=== PATIENT | female | born 1955 | race Caucasian/White ===

== ENCOUNTER 2020-09-09 11:59 | Inpatient (IN) ==
[2020-09-09] MEDS ORDERED: Magic Mouthwash 10 ML UD Cup PO PRN (18:29)
[2020-09-09] MEDS: *HR* OxyCODONE/APAP 5/325 TABLET PO PRN (21:39)
[2020-09-10 06:46] LABS: Basophils # 0.1 K/mcL (0.0-0.2); Basophils % 1.2 %; Eosinophils % 0.2 %; Hematocrit 22.7 % (35.3-44.9); Hemoglobin 7.6 g/dL (11.5-15.4); Immature Granulocytes % 13.1 % (0-4); Lymphocytes # 1.3 K/mcL (0.6-4.6); Lymphocytes % 25.7 %; Mean Corpuscular HGB Conc 33.5 g/dL (31.6-35.5); Mean Corpuscular Hemoglobin 30.8 pg (28.0-33.3); Mean Corpuscular Volume 91.9 fL (83.0-100.0); Mean Platelet Volume 10.8 fL (9.4-12.4); Monocytes # 0.4 K/mcL (0.0-1.3); Monocytes % 8.3 %; Neutrophils # 2.6 K/mcL (1.6-8.9); Nucleated Red Blood Cells 0.8 /100 WBC (0); Red Blood Count 2.47 M/mcL (3.82-4.97); Red Cell Distribution Width 17.3 % (11.5-14.5); Segmented Neutrophils % 51.5 %; White Blood Count 5.1 K/mcL (4.3-11.1)
[2020-09-10 06:57] LABS: Platelet Count 25 K/mcL (140-400)
[2020-09-10 07:02] LABS: BUN/Creatinine Ratio 33 (6-26); Blood Urea Nitrogen 20 mg/dL (8-23); Calcium 7.7 mg/dL (8.6-10.3); Carbon Dioxide 28 mEq/L (23-29); Chloride 107 mEq/L (98-107); Glucose 76 mg/dL (70-105); Osmolality,Calculated 299 (280-300); Potassium 3.1 mEq/L (3.5-5.1); Sodium 144 mEq/L (136-145); eGFR For African Americans > 60 (> 60); eGFR For Non-African Americans > 60 (> 60)
[2020-09-10 07:49] LABS: Platelet Estimate Marked Decrease (Normal)
[2020-09-10] MEDS ORDERED: GI Cocktail 40 ML EACH PO PRN (07:52)
[2020-09-10] MEDS: Potassium Chloride Elixir 20 MEQ/15 ML UDC PO SCH ×2 (08:42→17:27)
[2020-09-11 06:47] LABS: Basophils # 0.1 K/mcL (0.0-0.2); Hematocrit 24.4 % (35.3-44.9); Hemoglobin 8.2 g/dL (11.5-15.4); Mean Corpuscular HGB Conc 33.6 g/dL (31.6-35.5); Mean Corpuscular Hemoglobin 31.5 pg (28.0-33.3); Mean Corpuscular Volume 93.8 fL (83.0-100.0); Mean Platelet Volume 11.3 fL (9.4-12.4); Nucleated Red Blood Cells 0.8 /100 WBC (0); Red Cell Distribution Width 17.8 % (11.5-14.5); White Blood Count 5.2 K/mcL (4.3-11.1)
[2020-09-11 07:05] LABS: BUN/Creatinine Ratio 31 (6-26); Blood Urea Nitrogen 22 mg/dL (8-23); Calcium 7.5 mg/dL (8.6-10.3); Carbon Dioxide 29 mEq/L (23-29); Chloride 108 mEq/L (98-107); Glucose 94 mg/dL (70-105); Osmolality,Calculated 305 (280-300); Phosphorous 2.2 mg/dL (2.7-4.5); Sodium 146 mEq/L (136-145); eGFR For African Americans > 60 (> 60); eGFR For Non-African Americans > 60 (> 60)
[2020-09-11 07:15] LABS: Platelet Count 39 K/mcL (140-400)
[2020-09-11 08:38] LABS: Anisocytosis 1+ (Not Present); Lymphocytes # 1.3 K/mcL (0.6-4.6); Monocytes # 0.2 K/mcL (0.0-1.3); Neutrophils # 3.1 K/mcL (1.6-8.9)
[2020-09-11 08:39] LABS: Platelet Estimate Marked Decrease (Normal); Polychromasia 1+ (Not Present)
[2020-09-11] MEDS: Potassium Chloride Elixir 20 MEQ/15 ML UDC PO SCH ×2 (09:01→17:39)
[2020-09-11] MEDS: D5% in 0.45% NACL w KCl 20 MEQ/1,000 ML MLS IVC SCH (15:26)
[2020-09-12] MEDS: D5% in 0.45% NACL w KCl 20 MEQ/1,000 ML MLS IVC SCH (00:12)
[2020-09-12] MEDS: Potassium Chloride Elixir 20 MEQ/15 ML UDC PO SCH ×2 (09:43→17:18)
[2020-09-12] MEDS: *HR* OxyCODONE/APAP 5/325 TABLET PO PRN (11:24)
[2020-09-12 15:04] LABS: BUN/Creatinine Ratio 32 (6-26); Blood Urea Nitrogen 21 mg/dL (8-23); Calcium 7.4 mg/dL (8.6-10.3); Carbon Dioxide 27 mEq/L (23-29); Chloride 106 mEq/L (98-107); Glucose 106 mg/dL (70-105); Magnesium 1.4 mg/dL (1.6-2.6); Osmolality,Calculated 295 (280-300); Phosphorous 1.4 mg/dL (2.7-4.5); Potassium 3.5 mEq/L (3.5-5.1); Sodium 141 mEq/L (136-145); eGFR For African Americans > 60 (> 60); eGFR For Non-African Americans > 60 (> 60)
[2020-09-12] MEDS ORDERED: Magnesium Sulfate 1 GM/102 ML PIGGYBACK IVPB ONE (17:03)
[2020-09-12] MEDS: Nystatin SUSP 5 ML UD.LIQ PO SCH ×2 (17:16→20:31)
[2020-09-13 07:20] LABS: BUN/Creatinine Ratio 33 (6-26); Blood Urea Nitrogen 19 mg/dL (8-23); Calcium 7.3 mg/dL (8.6-10.3); Carbon Dioxide 26 mEq/L (23-29); Chloride 107 mEq/L (98-107); Glucose 85 mg/dL (70-105); Osmolality,Calculated 292 (280-300); Potassium 3.6 mEq/L (3.5-5.1); Sodium 140 mEq/L (136-145); eGFR For African Americans > 60 (> 60); eGFR For Non-African Americans > 60 (> 60)
[2020-09-13 07:44] LABS: Basophils # 0.1 K/mcL (0.0-0.2); Hematocrit 22.3 % (35.3-44.9); Hemoglobin 7.4 g/dL (11.5-15.4); Mean Corpuscular HGB Conc 33.2 g/dL (31.6-35.5); Mean Corpuscular Hemoglobin 31.2 pg (28.0-33.3); Mean Corpuscular Volume 94.1 fL (83.0-100.0); Mean Platelet Volume 11.5 fL (9.4-12.4); Nucleated Red Blood Cells 0.7 /100 WBC (0); Platelet Count 56 K/mcL (140-400); Red Blood Count 2.37 M/mcL (3.82-4.97); Red Cell Distribution Width 18.2 % (11.5-14.5)
[2020-09-13] MEDS: Potassium Chloride Elixir 20 MEQ/15 ML UDC PO SCH ×2 (08:27→16:43)
[2020-09-13] MEDS: Magnesium Oxide 400 MG TABLET PO SCH ×2 (08:28→21:47)
[2020-09-13] MEDS: Nystatin SUSP 5 ML UD.LIQ PO SCH ×4 (08:44→21:47)
[2020-09-13 08:49] LABS: Lymphocytes # 2.1 K/mcL (0.6-4.6); Monocytes # 0.6 K/mcL (0.0-1.3); Neutrophils # 4.2 K/mcL (1.6-8.9)
[2020-09-13 08:50] LABS: Anisocytosis 2+ (Not Present); Hypochromasia Present (Not Present); Platelet Estimate Decreased (Normal); Polychromasia 1+ (Not Present); Toxic Granulation Present (Not Present)
[2020-09-14 07:45] LABS: BUN/Creatinine Ratio 33 (6-26); Blood Urea Nitrogen 18 mg/dL (8-23); Calcium 7.5 mg/dL (8.6-10.3); Carbon Dioxide 27 mEq/L (23-29); Chloride 108 mEq/L (98-107); Glucose 81 mg/dL (70-105); Magnesium 1.5 mg/dL (1.6-2.6); Osmolality,Calculated 291 (280-300); Phosphorous 1.9 mg/dL (2.7-4.5); Potassium 4.1 mEq/L (3.5-5.1); Sodium 140 mEq/L (136-145); eGFR For African Americans > 60 (> 60); eGFR For Non-African Americans > 60 (> 60)
[2020-09-14] MEDS: Potassium Chloride Elixir 20 MEQ/15 ML UDC PO SCH ×2 (08:06→18:13)
[2020-09-14] MEDS: Magnesium Oxide 400 MG TABLET PO SCH ×2 (08:10→20:38)
[2020-09-14] MEDS: Nystatin SUSP 5 ML UD.LIQ PO SCH ×4 (08:10→20:38)
[2020-09-14] MEDS: *HR* OxyCODONE/APAP 5/325 TABLET PO PRN (20:38)
[2020-09-15 07:20] LABS: BUN/Creatinine Ratio 27 (6-26); Blood Urea Nitrogen 16 mg/dL (8-23); Calcium 7.7 mg/dL (8.6-10.3); Carbon Dioxide 28 mEq/L (23-29); Chloride 106 mEq/L (98-107); Glucose 81 mg/dL (70-105); Magnesium 1.7 mg/dL (1.6-2.6); Osmolality,Calculated 290 (280-300); Phosphorous 2.6 mg/dL (2.7-4.5); Potassium 4.7 mEq/L (3.5-5.1); Sodium 140 mEq/L (136-145); eGFR For African Americans > 60 (> 60); eGFR For Non-African Americans > 60 (> 60)
[2020-09-15 07:27] LABS: Hematocrit 24.1 % (35.3-44.9); Hemoglobin 7.8 g/dL (11.5-15.4); Mean Corpuscular HGB Conc 32.4 g/dL (31.6-35.5); Mean Corpuscular Hemoglobin 30.7 pg (28.0-33.3); Mean Corpuscular Volume 94.9 fL (83.0-100.0); Mean Platelet Volume 10.5 fL (9.4-12.4); Nucleated Red Blood Cells 0.6 /100 WBC (0); Platelet Count 101 K/mcL (140-400); Red Blood Count 2.54 M/mcL (3.82-4.97); Red Cell Distribution Width 18.3 % (11.5-14.5); White Blood Count 8.7 K/mcL (4.3-11.1)
[2020-09-15 09:02] LABS: Lymphocytes # 1.4 K/mcL (0.6-4.6); Monocytes # 0.4 K/mcL (0.0-1.3); Neutrophils # 5.6 K/mcL (1.6-8.9); Platelet Estimate Decreased (Normal)
[2020-09-15 09:03] LABS: Anisocytosis 1+ (Not Present); Hypersegmented Neutrophils Present (Not Present)
[2020-09-15] MEDS: Potassium Chloride Elixir 20 MEQ/15 ML UDC PO SCH ×2 (10:01→18:30)
[2020-09-15] MEDS: Magnesium Oxide 400 MG TABLET PO SCH ×2 (10:02→19:59)
[2020-09-15] MEDS: Nystatin SUSP 5 ML UD.LIQ PO SCH ×4 (10:03→20:00)
[2020-09-15] MEDS: Ondansetron ODT 4 MG TAB.RAPDIS PO PRN (17:08)
[2020-09-16 06:55] LABS: Basophils # 0.1 K/mcL (0.0-0.2); Basophils % 0.9 %; Hematocrit 24.7 % (35.3-44.9); Lymphocytes # 1.5 K/mcL (0.6-4.6); Lymphocytes % 22.4 %; Mean Corpuscular HGB Conc 32.4 g/dL (31.6-35.5); Mean Corpuscular Volume 95.7 fL (83.0-100.0); Mean Platelet Volume 10.7 fL (9.4-12.4); Monocytes # 0.5 K/mcL (0.0-1.3); Neutrophils # 3.8 K/mcL (1.6-8.9); Nucleated Red Blood Cells 0.5 /100 WBC (0); Red Blood Count 2.58 M/mcL (3.82-4.97); Red Cell Distribution Width 18.6 % (11.5-14.5); Segmented Neutrophils % 57.7 %; White Blood Count 6.7 K/mcL (4.3-11.1)
[2020-09-16 06:59] LABS: Platelet Count 95 K/mcL (140-400)
[2020-09-16 07:17] LABS: BUN/Creatinine Ratio 21 (6-26); Blood Urea Nitrogen 15 mg/dL (8-23); Calcium 7.5 mg/dL (8.6-10.3); Carbon Dioxide 30 mEq/L (23-29); Chloride 106 mEq/L (98-107); Glucose 78 mg/dL (70-105); Magnesium 1.5 mg/dL (1.6-2.6); Osmolality,Calculated 292 (280-300); Phosphorous 3.1 mg/dL (2.7-4.5); Potassium 4.8 mEq/L (3.5-5.1); Sodium 141 mEq/L (136-145); eGFR For African Americans > 60 (> 60); eGFR For Non-African Americans > 60 (> 60)
[2020-09-16 07:52] LABS: Anisocytosis 2+ (Not Present)
[2020-09-16 07:55] LABS: Basophilic Stippling 1+ (Not Present); Polychromasia 2+ (Not Present)
[2020-09-16 07:56] LABS: Platelet Estimate Decreased (Normal)
[2020-09-16] MEDS: Potassium Chloride Elixir 20 MEQ/15 ML UDC PO SCH ×2 (09:15→17:55)
[2020-09-16] MEDS: Nystatin SUSP 5 ML UD.LIQ PO SCH ×3 (09:16→17:54)
[2020-09-16] MEDS: Magnesium Oxide 400 MG TABLET PO SCH ×2 (09:16→20:05)
[2020-09-17] MEDS: *HR* OxyCODONE/APAP 5/325 TABLET PO PRN (06:43)
[2020-09-17] MEDS: Magnesium Oxide 400 MG TABLET PO SCH ×2 (11:02→20:48)
[2020-09-17] MEDS: Nystatin SUSP 5 ML UD.LIQ PO SCH ×4 (11:02→20:49)
[2020-09-17] MEDS: Potassium Chloride Elixir 20 MEQ/15 ML UDC PO SCH ×2 (11:02→15:36)
[2020-09-18 06:29] LABS: Hematocrit 23.5 % (35.3-44.9); Hemoglobin 7.7 g/dL (11.5-15.4); Mean Corpuscular HGB Conc 32.8 g/dL (31.6-35.5); Mean Corpuscular Volume 94.8 fL (83.0-100.0); Mean Platelet Volume 10.3 fL (9.4-12.4); Platelet Count 117 K/mcL (140-400); Red Blood Count 2.48 M/mcL (3.82-4.97); Red Cell Distribution Width 18.8 % (11.5-14.5); White Blood Count 5.3 K/mcL (4.3-11.1)
[2020-09-18 06:51] LABS: BUN/Creatinine Ratio 21 (6-26); Blood Urea Nitrogen 14 mg/dL (8-23); Calcium 7.4 mg/dL (8.6-10.3); Carbon Dioxide 28 mEq/L (23-29); Chloride 104 mEq/L (98-107); Glucose 80 mg/dL (70-105); Magnesium 1.3 mg/dL (1.6-2.6); Osmolality,Calculated 285 (280-300); Potassium 4.2 mEq/L (3.5-5.1); Sodium 138 mEq/L (136-145); eGFR For African Americans > 60 (> 60); eGFR For Non-African Americans > 60 (> 60)
[2020-09-18] MEDS: Potassium Chloride Elixir 20 MEQ/15 ML UDC PO SCH ×2 (08:43→16:18)
[2020-09-18] MEDS: Nystatin SUSP 5 ML UD.LIQ PO SCH ×4 (08:44→20:55)
[2020-09-18] MEDS: Magnesium Oxide 400 MG TABLET PO SCH ×2 (08:44→20:54)
[2020-09-18] MEDS: *HR* OxyCODONE/APAP 5/325 TABLET PO PRN ×2 (08:49→20:55)
[2020-09-18] MEDS: Megestrol Acetate 400 MG/10 ML UDC PO SCH (11:54)
[2020-09-19] MEDS: Nystatin SUSP 5 ML UD.LIQ PO SCH ×4 (10:26→20:01)
[2020-09-19] MEDS: Potassium Chloride Elixir 20 MEQ/15 ML UDC PO SCH ×2 (10:26→16:04)
[2020-09-19] MEDS: Megestrol Acetate 400 MG/10 ML UDC PO SCH (10:26)
[2020-09-19] MEDS: Magnesium Oxide 400 MG TABLET PO SCH ×2 (10:27→20:00)
[2020-09-20] MEDS: Potassium Chloride Elixir 20 MEQ/15 ML UDC PO SCH ×2 (10:10→16:40)
[2020-09-20] MEDS: Megestrol Acetate 400 MG/10 ML UDC PO SCH (10:10)
[2020-09-20] MEDS: Magnesium Oxide 400 MG TABLET PO SCH ×2 (10:10→20:10)
[2020-09-20] MEDS: Nystatin SUSP 5 ML UD.LIQ PO SCH ×4 (10:11→20:10)
[2020-09-20] MEDS: *HR* OxyCODONE/APAP 5/325 TABLET PO PRN (20:11)
[2020-09-21] MEDS: Potassium Chloride Elixir 20 MEQ/15 ML UDC PO SCH ×2 (08:45→17:02)
[2020-09-21] MEDS: Nystatin SUSP 5 ML UD.LIQ PO SCH ×4 (08:46→20:05)
[2020-09-21] MEDS: Magnesium Oxide 400 MG TABLET PO SCH ×2 (08:46→20:05)
[2020-09-21] MEDS: Megestrol Acetate 400 MG/10 ML UDC PO SCH (08:46)
[2020-09-21] MEDS: Ondansetron ODT 4 MG TAB.RAPDIS PO PRN (08:47)
[2020-09-22 06:07] LABS: Hemoglobin 7.9 g/dL (11.5-15.4); Mean Corpuscular HGB Conc 32.9 g/dL (31.6-35.5); Mean Corpuscular Hemoglobin 31.9 pg (28.0-33.3); Mean Corpuscular Volume 96.8 fL (83.0-100.0); Mean Platelet Volume 10.1 fL (9.4-12.4); Platelet Count 111 K/mcL (140-400); Red Blood Count 2.48 M/mcL (3.82-4.97); Red Cell Distribution Width 19.8 % (11.5-14.5); White Blood Count 4.6 K/mcL (4.3-11.1)
[2020-09-22 06:24] LABS: BUN/Creatinine Ratio 20 (6-26); Blood Urea Nitrogen 13 mg/dL (8-23); Calcium 7.5 mg/dL (8.6-10.3); Carbon Dioxide 29 mEq/L (23-29); Chloride 101 mEq/L (98-107); Glucose 79 mg/dL (70-105); Magnesium 1.4 mg/dL (1.6-2.6); Osmolality,Calculated 273 (280-300); Potassium 4.8 mEq/L (3.5-5.1); Sodium 132 mEq/L (136-145); eGFR For African Americans > 60 (> 60); eGFR For Non-African Americans > 60 (> 60)
[2020-09-22] MEDS: Megestrol Acetate 400 MG/10 ML UDC PO SCH (08:54)
[2020-09-22] MEDS: Magnesium Oxide 400 MG TABLET PO SCH ×2 (08:54→20:44)
[2020-09-22] MEDS: Nystatin SUSP 5 ML UD.LIQ PO SCH ×4 (08:54→20:44)
[2020-09-22] MEDS: Potassium Chloride Elixir 20 MEQ/15 ML UDC PO SCH ×2 (08:54→16:13)
[2020-09-22] MEDS ORDERED: Magnesium Oxide 400 MG TABLET PO ONE (11:30)
[2020-09-23 08:43] LABS: Bilirubin,Urine Negative (Negative); Blood,Urine Small (Negative); Clarity,Urine Slightly Cloudy (Clear); Color,Urine Yellow (Yellow); Glucose,Urine (UA) Normal (Normal); Ketones,Urine 15 mg/dL (Negative); Leukocyte Esterase,Urine Trace (Negative); Nitrite,Urine Negative (Negative); PH,Urine 8.5 pH Units (5.0-8.0); Protein,Urine Trace mg/dL (Neg-Trace); Urobilinogen,Urine Normal (Normal)
[2020-09-23] MEDS: Magnesium Oxide 400 MG TABLET PO SCH ×2 (08:48→20:00)
[2020-09-23] MEDS: Megestrol Acetate 400 MG/10 ML UDC PO SCH (08:48)
[2020-09-23] MEDS: Nystatin SUSP 5 ML UD.LIQ PO SCH ×4 (08:48→20:04)
[2020-09-23] MEDS: Potassium Chloride Elixir 20 MEQ/15 ML UDC PO SCH ×2 (08:48→16:32)
[2020-09-23 09:07] LABS: Bacteria,Urine Many per hpf (None-Few); RBC,Urine 0-3 per hpf (0-3); Squamous Epithelial Cell,Urine Few per hpf (None-Few); WBC,Urine 30-50 per hpf (0-3)
[2020-09-23] MEDS: cephALEXin 500 MG CAPSULE PO SCH ×3 (12:24→20:00)
[2020-09-23] MEDS: Lactobacillus 1 EACH CAP.SPRINK PO SCH (12:24)
[2020-09-24 06:22] LABS: Basophils # 0.1 K/mcL (0.0-0.2); Basophils % 1.5 %; Eosinophils % 0.8 %; Hematocrit 22.7 % (35.3-44.9); Hemoglobin 7.7 g/dL (11.5-15.4); Immature Granulocytes % 1.1 % (0-4); Lymphocytes # 1.4 K/mcL (0.6-4.6); Lymphocytes % 29.5 %; Mean Corpuscular HGB Conc 33.9 g/dL (31.6-35.5); Mean Corpuscular Hemoglobin 32.6 pg (28.0-33.3); Mean Corpuscular Volume 96.2 fL (83.0-100.0); Mean Platelet Volume 9.8 fL (9.4-12.4); Monocytes # 0.5 K/mcL (0.0-1.3); Monocytes % 9.5 %; Neutrophils # 2.7 K/mcL (1.6-8.9); Platelet Count 107 K/mcL (140-400); Red Blood Count 2.36 M/mcL (3.82-4.97); Red Cell Distribution Width 20.1 % (11.5-14.5); Segmented Neutrophils % 57.6 %; White Blood Count 4.8 K/mcL (4.3-11.1)
[2020-09-24 07:09] LABS: BUN/Creatinine Ratio 16 (6-26); Blood Urea Nitrogen 11 mg/dL (8-23); Calcium 7.6 mg/dL (8.6-10.3); Carbon Dioxide 26 mEq/L (23-29); Chloride 101 mEq/L (98-107); Glucose 71 mg/dL (70-105); Magnesium 1.3 mg/dL (1.6-2.6); Osmolality,Calculated 274 (280-300); Phosphorous 3.2 mg/dL (2.7-4.5); Potassium 4.6 mEq/L (3.5-5.1); Sodium 133 mEq/L (136-145); eGFR For African Americans > 60 (> 60); eGFR For Non-African Americans > 60 (> 60)
[2020-09-24] MEDS: Megestrol Acetate 400 MG/10 ML UDC PO SCH (08:13)
[2020-09-24] MEDS: Nystatin SUSP 5 ML UD.LIQ PO SCH ×4 (08:13→19:55)
[2020-09-24] MEDS: Lactobacillus 1 EACH CAP.SPRINK PO SCH (08:13)
[2020-09-24] MEDS: cephALEXin 500 MG CAPSULE PO SCH ×3 (08:13→19:55)
[2020-09-24] MEDS: Potassium Chloride Elixir 20 MEQ/15 ML UDC PO SCH (08:13)
[2020-09-24] MEDS: Magnesium Oxide 400 MG TABLET PO SCH ×2 (08:14→19:54)
[2020-09-24] MEDS ORDERED: 0.9 % Sodium Chloride 250 ML IVC ONE (18:11)
[2020-09-25] MEDS: Lactobacillus 1 EACH CAP.SPRINK PO SCH (10:16)
[2020-09-25] MEDS: Magnesium Oxide 400 MG TABLET PO SCH ×2 (10:16→21:23)
[2020-09-25] MEDS: Nystatin SUSP 5 ML UD.LIQ PO SCH ×4 (10:16→21:23)
[2020-09-25] MEDS: cephALEXin 500 MG CAPSULE PO SCH ×3 (10:16→21:49)
[2020-09-25] MEDS: Megestrol Acetate 400 MG/10 ML UDC PO SCH (10:16)
[2020-09-25] MEDS: Potassium Chloride Elixir 20 MEQ/15 ML UDC PO SCH (11:12)
[2020-09-25 12:08] LABS: Basophils # 0.1 K/mcL (0.0-0.2); Basophils % 1.1 %; Eosinophils % 0.2 %; Hemoglobin 9.9 g/dL (11.5-15.4); Immature Granulocytes % 0.7 % (0-4); Lymphocytes % 20.5 %; Mean Corpuscular HGB Conc 34.1 g/dL (31.6-35.5); Mean Corpuscular Hemoglobin 32.9 pg (28.0-33.3); Mean Corpuscular Volume 96.3 fL (83.0-100.0); Mean Platelet Volume 9.8 fL (9.4-12.4); Monocytes # 0.6 K/mcL (0.0-1.3); Monocytes % 5.8 %; Neutrophils # 6.8 K/mcL (1.6-8.9); Platelet Count 187 K/mcL (140-400); Red Blood Count 3.01 M/mcL (3.82-4.97); Red Cell Distribution Width 20.2 % (11.5-14.5); Segmented Neutrophils % 71.7 %; White Blood Count 9.5 K/mcL (4.3-11.1)
[2020-09-25] MEDS: 0.9 % Sodium Chloride 1,000 ML IVC SCH ×2 (14:00→23:00)
[2020-09-26] MEDS: 0.9 % Sodium Chloride 1,000 ML IVC SCH ×2 (08:52→17:18)
[2020-09-26 09:53] LABS: Basophils # 0.1 K/mcL (0.0-0.2); Basophils % 1.5 %; Eosinophils % 0.9 %; Hematocrit 23.1 % (35.3-44.9); Hemoglobin 7.8 g/dL (11.5-15.4); Immature Granulocytes % 0.7 % (0-4); Lymphocytes # 0.9 K/mcL (0.6-4.6); Lymphocytes % 19.4 %; Mean Corpuscular HGB Conc 33.8 g/dL (31.6-35.5); Mean Corpuscular Hemoglobin 33.2 pg (28.0-33.3); Mean Corpuscular Volume 98.3 fL (83.0-100.0); Mean Platelet Volume 10.1 fL (9.4-12.4); Monocytes # 0.4 K/mcL (0.0-1.3); Monocytes % 8.4 %; Neutrophils # 3.1 K/mcL (1.6-8.9); Platelet Count 92 K/mcL (140-400); Red Blood Count 2.35 M/mcL (3.82-4.97); Segmented Neutrophils % 69.1 %; White Blood Count 4.5 K/mcL (4.3-11.1)
[2020-09-26] MEDS: Lactobacillus 1 EACH CAP.SPRINK PO SCH (10:29)
[2020-09-26] MEDS: Potassium Chloride Elixir 20 MEQ/15 ML UDC PO SCH (10:29)
[2020-09-26] MEDS: Megestrol Acetate 400 MG/10 ML UDC PO SCH (10:29)
[2020-09-26] MEDS: Nystatin SUSP 5 ML UD.LIQ PO SCH ×4 (10:29→20:19)
[2020-09-26] MEDS: cephALEXin 500 MG CAPSULE PO SCH ×3 (10:29→20:19)
[2020-09-26] MEDS: Magnesium Oxide 400 MG TABLET PO SCH ×2 (10:29→20:18)
[2020-09-26] MEDS ORDERED: 0.9 % Sodium Chloride 250 ML ONE (20:16)
[2020-09-27] MEDS: 0.9 % Sodium Chloride 1,000 ML IVC SCH ×2 (04:46→22:32)
[2020-09-27] MEDS: *HR* OxyCODONE/APAP 5/325 TABLET PO PRN (04:52)
[2020-09-27 07:54] LABS: Basophils # 0.1 K/mcL (0.0-0.2); Eosinophils # 0.1 K/mcL (0.0-0.6); Eosinophils % 1.3 %; Immature Granulocytes % 0.8 % (0-4); Lymphocytes # 1.1 K/mcL (0.6-4.6); Lymphocytes % 17.8 %; Mean Corpuscular HGB Conc 34.1 g/dL (31.6-35.5); Mean Corpuscular Hemoglobin 32.8 pg (28.0-33.3); Mean Platelet Volume 10.1 fL (9.4-12.4); Monocytes # 0.4 K/mcL (0.0-1.3); Monocytes % 6.9 %; Neutrophils # 4.4 K/mcL (1.6-8.9); Red Blood Count 3.02 M/mcL (3.82-4.97); Red Cell Distribution Width 18.6 % (11.5-14.5); Segmented Neutrophils % 72.2 %; White Blood Count 6.1 K/mcL (4.3-11.1)
[2020-09-27 08:08] LABS: Hemoglobin 9.9 g/dL (11.5-15.4); Platelet Count 99 K/mcL (140-400)
[2020-09-27 08:23] LABS: BUN/Creatinine Ratio 16 (6-26); Blood Urea Nitrogen 9 mg/dL (8-23); Calcium 7.4 mg/dL (8.6-10.3); Carbon Dioxide 20 mEq/L (23-29); Chloride 106 mEq/L (98-107); Glucose 66 mg/dL (70-105); Magnesium 1.4 mg/dL (1.6-2.6); Osmolality,Calculated 275 (280-300); Phosphorous 2.7 mg/dL (2.7-4.5); Potassium 3.9 mEq/L (3.5-5.1); Sodium 134 mEq/L (136-145); eGFR For African Americans > 60 (> 60); eGFR For Non-African Americans > 60 (> 60)
[2020-09-27 08:26] LABS: Rouleaux Present (Not Present)
[2020-09-27] MEDS: Megestrol Acetate 400 MG/10 ML UDC PO SCH (09:22)
[2020-09-27] MEDS: Lactobacillus 1 EACH CAP.SPRINK PO SCH (09:23)
[2020-09-27] MEDS: Magnesium Oxide 400 MG TABLET PO SCH ×2 (09:23→21:59)
[2020-09-27] MEDS: cephALEXin 500 MG CAPSULE PO SCH ×3 (09:23→21:59)
[2020-09-27] MEDS: Potassium Chloride Elixir 20 MEQ/15 ML UDC PO SCH (09:23)
[2020-09-27] MEDS: Nystatin SUSP 5 ML UD.LIQ PO SCH ×4 (09:23→22:32)
[2020-09-28] MEDS: Megestrol Acetate 400 MG/10 ML UDC PO SCH (10:10)
[2020-09-28] MEDS: Lactobacillus 1 EACH CAP.SPRINK PO SCH (10:10)
[2020-09-28] MEDS: Nystatin SUSP 5 ML UD.LIQ PO SCH ×4 (10:10→20:47)
[2020-09-28] MEDS: Potassium Chloride Elixir 20 MEQ/15 ML UDC PO SCH (10:10)
[2020-09-28] MEDS: Magnesium Oxide 400 MG TABLET PO SCH ×2 (10:11→20:29)
[2020-09-29 07:14] VITALS: BP 122/66
[2020-09-29 08:05] LABS: Basophils % 0.7 %; Eosinophils # 0.1 K/mcL (0.0-0.6); Eosinophils % 2.2 %; Hematocrit 30.8 % (35.3-44.9); Hemoglobin 10.6 g/dL (11.5-15.4); Immature Granulocytes % 0.7 % (0-4); Lymphocytes # 1.3 K/mcL (0.6-4.6); Lymphocytes % 21.4 %; Mean Corpuscular HGB Conc 34.4 g/dL (31.6-35.5); Mean Corpuscular Hemoglobin 32.8 pg (28.0-33.3); Mean Corpuscular Volume 95.4 fL (83.0-100.0); Mean Platelet Volume 9.5 fL (9.4-12.4); Monocytes # 0.4 K/mcL (0.0-1.3); Monocytes % 6.8 %; Neutrophils # 4.1 K/mcL (1.6-8.9); Platelet Count 102 K/mcL (140-400); Red Blood Count 3.23 M/mcL (3.82-4.97); Red Cell Distribution Width 18.6 % (11.5-14.5); Segmented Neutrophils % 68.2 %
[2020-09-29 08:26] LABS: BUN/Creatinine Ratio 16 (6-26); Blood Urea Nitrogen 10 mg/dL (8-23); Calcium 7.7 mg/dL (8.6-10.3); Carbon Dioxide 20 mEq/L (23-29); Chloride 103 mEq/L (98-107); Glucose 73 mg/dL (70-105); Magnesium 1.4 mg/dL (1.6-2.6); Osmolality,Calculated 276 (280-300); Potassium 3.6 mEq/L (3.5-5.1); Sodium 134 mEq/L (136-145); eGFR For African Americans > 60 (> 60); eGFR For Non-African Americans > 60 (> 60)
[2020-09-29] MEDS: Potassium Chloride Elixir 20 MEQ/15 ML UDC PO SCH (08:53)
[2020-09-29] MEDS: Megestrol Acetate 400 MG/10 ML UDC PO SCH (08:53)
[2020-09-29] MEDS: Lactobacillus 1 EACH CAP.SPRINK PO SCH (08:54)
[2020-09-29] MEDS: Magnesium Oxide 400 MG TABLET PO SCH (08:54)
[2020-09-29] MEDS ORDERED: levoFLOXacin 500 MG TABLET PO SCH (09:00)
[2020-09-29] MEDS ORDERED: Linezolid 600 MG TABLET PO SCH (09:00)
[2020-09-29] MEDS: Nystatin SUSP 5 ML UD.LIQ PO SCH ×3 (09:04→17:06)
[2020-09-29] MEDS ORDERED: Fosfomycin Tromethamine 3 GM Packet PO ONE (17:00)
== END 2020-09-29 19:23 | disposition home health service (06) | DRG 945 ==
LOC: INPPIK 20:54
PROVIDERS: ADMIT Family Medicine; ATTEND Family Medicine